=== PATIENT | male | born 1985 | race Caucasian/White ===

== ENCOUNTER → 2020-10-21 | Outpatient (CLI) | payer SELFPAY ==
[~2020-10-21] MED LIST: AMOXICILLIN500 MG PO; ATARAX25 MG PO; CEPHALEXIN500 M1 PO; KEFLEX500 MG PO; MOTRIN800 MG PO; MULTI VITAMINS1 TAB PO; PREDNISONE20 MG PO
== END | disposition home or self-care (01) ==
LOC: COVID19 10:16
PROVIDERS: ATTEND Internal Medicine
DX: Z11.52 Encounter for screening for COVID-19 (principal)

== ENCOUNTER → 2021-11-10 | Outpatient (CLI) | payer SELFPAY | END | disposition home or self-care (01) | LOC: RAD 16:10 | PROVIDERS: ATTEND Family Medicine | DX: Z00.8 Encounter for other general examination (principal) ==

== ENCOUNTER 2022-10-12 11:15 | Emergency (ER) | payer SELFPAY ==
[2022-10-12] MEDS ORDERED: CYCLOBENZAPRINE10 MG PO (13:13)
[2022-10-12] MEDS ORDERED: PREDNISONE50 MG PO (13:13)
== END 2022-10-12 13:32 | disposition home or self-care (01) ==
LOC: ED 11:15
DX: S16.1XXA Strain of muscle, fascia and tendon at neck level, initial encounter (principal); M25.512 Pain in left shoulder; Z98.890 Other specified postprocedural states; X50.0XXA Overexertion from strenuous movement or load, initial encounter; Y93.89 Activity, other specified; Y92.89 Other specified places as the place of occurrence of the external cause; Y99.8 Other external cause status

== ENCOUNTER → 2023-04-08 | Outpatient (CLI) | payer OTHER ==
[~2023-04-08] MED LIST changes: +CYCLOBENZAPRINE10 MG PO; +PREDNISONE50 MG PO
== END | disposition home or self-care (01) ==
LOC: RAD 13:59
PROVIDERS: ATTEND Family Medicine
DX: M41.84 Other forms of scoliosis, thoracic region (principal); M25.512 Pain in left shoulder; M25.511 Pain in right shoulder